=== PATIENT | female | born 1995 ===

== ENCOUNTER 2016-07-05 10:09 | Emergency (ER) | payer SELFPAY ==
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
[2016-07-05] MEDS ORDERED: ONDANSETRON DISINTEGRATING 4 MG TAB PO ONE (11:33)
[2016-07-05] MEDS ORDERED: CEFTRIAXONE IM 350 MG/ML SYRINGE IM ONE (11:33)
[2016-07-05] MEDS ORDERED: ULIPRISTAL ACETATE 30 MG TAB PO ONE ×3 (11:33→14:00)
[2016-07-05] MEDS ORDERED: AZITHROMYCIN 250 MG TAB PO ONE ×2 (11:33→14:00)
== END 2016-07-05 14:48 | disposition home or self-care (01) ==
LOC: EEVIPCON 10:09 → SANE 10:09
DX: Z04.41 Encounter for examination and observation following alleged adult rape (principal); S09.90XA Unspecified injury of head, initial encounter; Y07.9 Unspecified perpetrator of maltreatment and neglect; Y92.89 Other specified places as the place of occurrence of the external cause
CPT/HCPCS: J0696